=== PATIENT | female | born 1995 | race Caucasian/White ===

== ENCOUNTER → 2025-01-27 07:57 | Outpatient (BNVA) | payer SELFPAY | DX: Z01.84 Encounter for antibody response examination (principal) | CPT/HCPCS: 90710 ==

== ENCOUNTER 2025-02-25 12:48 | Outpatient (AMB) | payer MEDICAID, SELFPAY ==
--- NOTE | 2025-02-25 13:01 | A.OFFVIS_ITS ---
Vital Signs 02/25/25 13:10 Height 5 ft Weight 110 lb BMI 21.5 BP 88/58 L Intake Visit Reasons: breast lump Intake Note: Last pap smear May 2019, normal history. Left breast lump noticed it 2 days ago, bothersome. Occasional molina discharge. Real Estate Asset Manager: Real Estate Asset Manager Present (SOPHIA Rouse) Accompanied by: Self / Same As Patient Allergies ketorolac (From Toradol) Allergy (Verified 02/25/25 13:08) Confusion lorazepam (From Ativan) Allergy (Verified 02/25/25 13:08) Confusion acetaminophen (From Percocet) Adverse Reaction (Verified 02/25/25 13:08) Hives iodine Adverse Reaction (Verified 02/25/25 13:08) Hives oxycodone (From Percocet) Adverse Reaction (Verified 02/25/25 13:08) Hives Is last menstrual period known: Yes Last menstrual period: 08/17/20 Post menopausal: No Patient : No HPI Comments Details: Patient is here for a new patient consult. She reports two area's of the left breast she found lumps over the last few days. Both are non tender. Additionally reports, spontaneous byrnes nipple discharge. She denies any prior breast biopsies, nipple piercing or injuries. Admits to recent loss of weight rapidly between 25-30 lbs. [facility] Medical History Breast lump Bipolar disorder Anxiety PTSD (post-traumatic stress disorder) IBS (irritable bowel syndrome) Acute Crohn's disease Migraines Asthma Surgical History H/O: hysterectomy Hx of appendectomy Family History Maternal Grandmother Breast cancer Maternal Aunt Breast cancer Ovarian cancer Paternal Grandfather Colon cancer Social History Patient : No Female Reproductive History Menstrual Age of Menarche: 18 Date of last menstrual period: 08/17/20 control method: none Total pregnancies: 2 Full term: 2 Review of Systems Const All systems reviewed & are unremarkable except as noted in HPI and below Reports no additional complaints Skin/Breast Reports system reviewed and no additional complaints, except as documented and Reports as per HPI Physical Exam Vital Signs: Last Vital Signs BP 88/58 L 02/25/25 13:10 BMI result Body Mass Index 21.5 Const General: cooperative, healthy appearing and no acute distress Chest Breast/axilla inspection: normal inspection of the breasts and normal inspection of the axillae Breast/axilla palpation: abnormal palpation of the breast (Thickening of the anterior portion of the breast 12:00) and other (Additional lump found 06:00 region, no nipple discharge elicited) Skin General skin exam: no rashes or lesions noted Assessment & Plan Assessment & Plan (1) Breast lump: Code(s): N63.0 - Unspecified lump in unspecified breast Category: Medical Qualifiers: Laterality: left Breast mass location: unspecified quadrant Qualified Code(s): N63.20 - Unspecified lump in the left breast, unspecified quadrant Plan Discussed physical findings today plan to have bilateral mammogram and left breast ultrasound obtained follow up in office for results and consider a surgical referral if indicated. Findings of breast lumps could include benign causes verses cystic changes, precancer and cancer of the breast, other etiology. The patient expressed understanding and agreement with the plan of care. All of her questions and concerns were addressed to the best of my ability. Insert voice recognition Orders: Orders MM tomosynthesis diagnostic BI Today Z12.31 - Encounter for screening mammogram for malignant neoplasm of breast US breast LT complete Today N63.0 - Unspecified lump in unspecified breast Coding Level of Care Code New Pt Level 3 (77754) Diagnoses Mass of left breast, unspecified quadrant N63.20 Laterality: left Breast mass location: unspecified quadrant
[2025-02-25 13:10] VITALS: BP 88/58; BMI 21.5
--- OUTSIDE RECORDS SUMMARY | 2025-02-25 13:20 | XMS_ITS | Clinical Summary ---
Author Organization [facility] Address [address] [place] [address] Care Team Providers Care Qa Software Tester Name Role Phone Ye Anglin MD Primary Care Provider [phone] Allergies Active Allergy Reactions Criticality Noted Date Comments Lorazepam Hives 07/07/2020 Povidone Iodine Hives 07/07/2020 Latex Hives 07/07/2020 Oxycodone-Acetaminophen Hives 07/07/2020 Ketorolac Tromethamine Hives 07/07/2020 Medications Medication Sig Dispensed Refills Start Date End Date Status MV-MIN-FE FUM-FA-DHA PO Take by mouth daily. 0 Active medroxyPROGESTERone (PROVERA) 10 MG tablet Take 10 mg by mouth daily. 0 Active ferrous sulfate 325 (65 FE) MG tablet Take 325 mg by mouth every morning with breakfast. 0 Active budesonide (PULMICORT) 180 MCG/ACT inhaler Inhale 1 puff into the lungs 2 (two) times a day. 0 Active albuterol (PROVENTIL HFA;VENTOLIN HFA) 108 (90 Base) MCG/ACT inhaler Inhale 2 puffs into the lungs every 4 (four) hours as needed for wheezing. 0 Active Active Problems No known active problems Family History Medical History Relation Name Comments Cancer Maternal Grandmother Relation Name Status Comments Maternal Grandmother Social History Tobacco Use Types Packs/Day Years Used Date Smoking Tobacco: Never Smokeless Tobacco: Never Alcohol Use Standard Drinks/Week Comments No 0 (1 standard drink = 0.6 oz pur e alcohol) Sex and Gender Information Value Date Recorded Sex Assigned at Female 07/12/2022 11:31 AM EST Gender Identity Female 07/12/2022 11:31 AM EST Sexual Orientation Not on file Job Start Date Occupation Industry Not on file Not on file Not on file Last Filed Vital Signs Vital Sign Reading Time Taken Comments Blood Pressure 107/63 07/08/2020 9:59 AM EST Pulse 63 07/08/2020 9:59 AM EST Temperature 36.4 C (97.6 F) 07/08/2020 9:59 AM EST Respiratory Rate - - Oxygen Saturation 100% 07/08/2020 9:59 AM EST Inhaled Oxygen Concentration - - Weight 63.1 kg (139 lb 3.2 oz) 07/08/2020 9:59 A M EST Height 154.9 cm (5' 1 ) 07/08/2020 9:59 AM EST Body Mass Index 26.3 07/08/2020 9:59 AM EST Plan of Treatment Health Maintenance Due Date Last Done Comments Hepatitis C Screening 1995 COVID-19 Vaccine (#1) 1995 Depression Screening 2007 BMI Counseling 2013 Preventative Health Evaluation 2013 Cervical Cancer Screening (Pap Smear) 02/19/2016 Influenza Vaccine (#1) 2025 7, 07/14/2011, 06/09/2010 DTap / Tdap / Td (9 - Td or Tdap) 12/30/2029 12/31/2019, 05/11/2017, 12/05/2007, Additional history exists Hepatitis B Vaccines Completed 05/30/1997, 07/03/1996, 07/03/1996, Additional history exists Pneumococcal Vaccine Aged Out No long er eligible based on patient's age to complete this topic RSV Ped < 20 months Aged Out No longe r eligible based on patient's age to complete this topic Care Teams Qa Software Tester Relationship Specialty Start Date End Date Ye Anglin MD PCP - General Internal Medicine 07/12/22
--- OUTSIDE RECORDS SUMMARY | 2025-02-25 13:20 | XMS_ITS | Clinical Summary ---
Author Organization [facility] Address [address] [place] [address] Care Team Providers Care Grain Mill Products Inspector Name Role Phone Vega Infante MD Primary Care Provider Source Comments PLEASE NOTE, if this patient is a minor, it may be UNLAWFUL to discuss sensitive information that is contained in these records (such as FAMILY PLANNING, MENTAL HEALTH or SUBSTANCE ABUSE) with the minor patient's parent or other person without the patient's specific authorization.[facility] Allergies Active Allergy Reactions Criticality Noted Date Comments Acetaminophen 11/20/2017 Ketorolac Hives High 06/22/2016 Reaction noted in 2014 Latex Gloves Hives High 06/22/2016 Lorazepam Medium 03/13/2017 Other reaction(s): Hives/Urticaria Oxycodone-Acetaminophen 10/23/2015 Povidone-Iodine Low 09/28/2018 Other reaction(s): Hives/Urticaria Medications budesonide (PULMICORT FLEXHALER) 180 mcg/actuation inhalerIndicati ons:Moderate persistent asthma, unspecified whether complicated (HHS-HCC) Inhale 180 mcg into the lungs 0 Active nebulizer and compressorIndic ations:Moderate persistent asthma, unspecified whether complicated (HHS-HCC) Use with nebulizer 1 Each 0 Active albuterol sulfate 90 mcg/actuation inhalerIndicati ons:SOB (shortness of breath) Inhale 2 Puffs into the lungs every 4 (four) hours NEEDED FOR SHORTNESS OF BREATH 2 Inhaler 5 0 Active ipratropium-alb uteroL (DUONEB) 0.5 mg-3 mg(2.5 mg base)/3 mL nebulizer solutionIndicat ions:Moderate persistent asthma, unspecified whether complicated ([facility]) Take 3 mL by nebulization 4 (four) times daily 360 mL 5 0 Active PNV,calcium 15-dhhd-pooqn acid (PREPLUS) 27 mg iron- 1 mg tab Take 1 Tab by mouth once daily 90 Tab 1 0 Active Active Problems Problem Noted Date Diagnosed Date Anxiety and depression 11/20/2017 Asthma affecting , antepartum ([facility]) 04/24/2017 Family history of blood clots 03/14/2017 Overview (04/26/2017): Overview: Mother has has multiple thromboembolism Sister had DVT in Has appt with hematology at [facility] Acute back pain 08/19/2016 Overview (08/19/2016): Xray- 08/05/16. Minimal scoliosis. Otherwise negative study Insomnia 10/30/2015 Overview (10/30/2015): Melatonin 3mg Hx of appendectomy 10/30/2015 Irritable bowel syndrome without diarrhea 2015 Resolved Problems Problem Noted Date Diagnosed Date Resolved Date Supervision of normal first ([facility]) 04/26/2017 09/08/2021 Overview (04/26/2017): Overview: Transfer from [facility] at [id number] per pt request/preference 1. [facility] site: [place] 2. Delivery site: [facility] 3. Dating criteria: LMP confirmed by 1st trimester ultrasound 3. Blood type: A+ 4. Genetic screening: Date: Result: 5. GBS: Date: 6. FOB name: quentin 7. Plans A. Epidural or other pain management - B. Labor support identified - C. Tdap - Date: D. Breast or Bottle feed: Breast E. Baby's name - F. Circumcision - Zika screen negative [facility] labs scanned Rubella immune Hep B negative VARICELLA negative TPA neg HIV neg CF negative Pap test normal 02/16/17 survey- posterior placenta, unremarkable survey. Small for dates affecting ma nagement of mother ([facility]) 04/11/2017 09/08/2021 Overview (04/26/2017): Overview: 04/11/2017 Repeat sono with MFM Susceptible to varicella (no n-immune), currently ([facility]) 03/14/2017 09/08/2021 Overview (04/26/2017): Overview: Needs Vertigo 10/30/2015 09/08/2021 Overview (10/30/2015): Seen by cardiology 2011. Started on florinef 150mg which caused leg swelling then stopped. Last visit cardiology recommended midodrine 5 mg tid Anxiety 10/30/2015 11/20/2017 Overview (04/26/2017): Overview: EPDS screen for her initial visit of 13 She is seeing a therapist weekly and feels supported Therapist is at [facility] Immunizations Immunization Administration Dates Next Due DTaP-Hep B-IPV (Pediarix) 05/30/1997,05/1996,02/21/1996,05/02 HEP B, PED/ADOL (MQSFDLI-[id number]-FMQP/RECOMBIVAX-PEDS) 07/03/1996,02/21/1996,1995,05/02 HPV 9 (Gardasil) 07/14/2011,06/09/2010, 7 Hib (PRP-T) 07/03/1996 INFLUENZA, SEASONAL, INJECTABLE 07/14/2011,06/09 IPV (IPOL) 03/09/1999, 6,02/21/1996,05/02 MENINGOCOCCAL VACCINE,CONJUG ATE (NON-INTERFACE) 12/05/2007,08/16/2006 MMR (MMR II/Priorix) 05/30/1997,02/21/1996 PPD 11/20/2017,11/09/2015 TDAP 12/05/2007,08/16/2006 Varicella (Varivax), Live Vaccine 12/05/2007, Family History Medical History Relation Name Comments Alcohol/Drug Abuse Father Kidney disease Maternal Grandmother Heart Problems Mother Relation Name Status Comments Father Alive Maternal Grandmother Mother Alive Social History Tobacco Use Types Packs/Day Years Used Date Smoking Tobacco: Never Smokeless Tobacco: Never Alcohol Use Standard Drinks/Week Comments No 0 (1 standard drink = 0.6 oz pur e alcohol) Social Connections Answer Date Recorded Connectedness 0 04/11/2024 Financial Resource Strain Answer Date R ecorded Financial Resource Strain 0 2018 Stress Answer Date Recorded Stress 0 03/11/2019 Physical Activity Answer Date Recorded Physical Activity 0 03/11/2019 Food Insecurity Answer Date Recorded Food 0 04/18/2024 Transportation Needs Answer Date Record ed Transportation 0 03/11/2019 Housing Stability Answer Date Recorded Housing 0 03/11/2019 Safety and Environment Answer Date Spenser rded Safety 0 03/11/2019 Utilities Answer Date Recorded Utilities 0 03/11/2019 Employment Answer Date Recorded Stress 0 04/11/2024 Comments Unknown Sex and Gender Information Value Date Recorded Sex Assigned at Female 11/20/2017 9:03 AM PDT Legal Sex Female 10:41 AM PST Gender Identity Female 11/20/2017 9:03 AM PDT Sexual Orientation Straight 11/20/2017 9: 03 AM PDT Occupation Industry Job Start Date Job End Date student Not on file Not on file Not on file Last Filed Vital Signs Vital Sign Reading Time Taken Comments Blood Pressure 116/80 12/10/2018 1:06 PM EDT Pulse 96 12/10/2018 1:06 PM EDT Temperature 36.8 C (98.2 F) 12/10/2018 1:06 PM EDT Respiratory Rate 20 12/10/2018 1:06 PM EDT Oxygen Saturation 95% 12/10/2018 1:06 PM EDT Inhaled Oxygen Concentration - - Weight 64.4 kg (142 lb) 12/10/2018 1:06 PM EDT Height 154.9 cm (5' 1 ) 12/10/2018 1:06 PM EDT Body Mass Index 26.83 12/10/2018 1:06 PM EDT Plan of Treatment Health Maintenance Due Date Last Done Comments Anxiety Screening 1995 Depression Monitoring 1995 HPV Screening 1995 Hepatitis C Screening 1995 Pap + HPV 1995 Tobacco Screening 1995 HIV Screening 2010 Relationship Safety Screening/Counseling 2010 Imm-Pneumococcal (1 of 2 - PCV) 2014 Cervical Cancer Screening 02/19/2016 Pap Smear 02/19/2016 Annual Wellness (Adult): Indicated (All Coverage) 11/20/2018 11/20/2017, 11/05/2015 Hypertension Screening (#1) 12/09/2021 [id number] ( season) 2024 021, 07/30/2020 Alcohol and Drug Screen 07/24/2024 11/21/19 18, 10/23/2015, 10/23/2015 Imm-Influenza (#1) 2025 08/27/2018, 1 , 07/14/2011, Additional history exists Imm-DTaP/Tdap/Td (9 - Td or Tdap) 12/30/2029 12/31/2019, 05/11/2017, 12/05/2007, Additional history exists Imm-Hepatitis B Completed 05/30/1997, 06/23, 07/03/1996, Additional history exists Cervical Ablation/Cold-Knife Conization Discontinued Cervical Cryotherapy Discontinued Colposcopy Discontinued Endometrial Biopsy Discontinued Excision/Leep Discontinued HPV Genotyping Discontinued Vaginal Pap Discontinued Vulvoscopy Discontinued Insurance [employer] [facility] Care Teams Grain Mill Products Inspector Relationship Specialty Start Date End Date Vega Infante MD [address] [place] [address] PCP - General Internal Medicine 04/26/21
--- OUTSIDE RECORDS SUMMARY | 2025-02-25 13:20 | XMS_ITS | Encounter Summary ---
Author Organization [facility] Address [address] [place] [address] Care Team Providers Care Straw Hat Presser Name Role Phone Pcp, No Primary Care Provider Unavailabl e Reason for Visit * Reason Onset Date Comments Medication Refill 06/04/2022 Encounter Details Date Type Department Care Team (Late st Contact Info) Description 06/04/2022 Refill [facility] [place] [address] [phone] Hieu Covarrubias PA [address] [place] [address] Yeast vaginitis Social History Tobacco Use Types Packs/Day Years Used Date Smoking Tobacco: Never Assessed Comments No Sex and Gender Information Value Date Recorded Sex Assigned at Not on file Legal Sex Female 2:14 PM EST Gender Identity Not on file Sexual Orientation Not on file COVID-19 Exposure Response Date Recorded In the last 10 days, have yo u been in contact with someone who was confirmed or suspected to have Coronavirus/COVID-19? Unable to assess 06/02/2022 8:49 AM EST documented as of this encounter Plan of Treatment Not on file documented as of this encounter Visit Diagnoses Diagnosis Yeast vaginitis documented in this encounter Care Teams Straw Hat Presser Relationship Specialty Start Date End Date Pcp, No PCP - General General Medicine 08/24/22 documented as of this encounter
== END 2025-02-25 13:50 | disposition home or self-care (01) ==
LOC: HO.HWS 12:48
PROVIDERS: Visit Provider Advanced Practice Midwife
DX: N63.20 Unspecified lump in the left breast, unspecified quadrant (principal)
CPT/HCPCS: 99203

== ENCOUNTER → 2025-02-25 12:48 | Outpatient (BNVA) | payer MEDICAID, SELFPAY | PROVIDERS: Visit Provider Advanced Practice Midwife | DX: N63.21 Unspecified lump in the left breast, upper outer quadrant (principal); N63.23 Unspecified lump in the left breast, lower outer quadrant | CPT/HCPCS: 99212 ==

== ENCOUNTER 2025-03-20 13:48 | Outpatient (REF) | payer MEDICAID, SELFPAY ==
--- NOTE | ~2025-03-20 | MM_ITS ---
EXAMINATIONS: 1. MM DIAGNOSTIC DIGITAL BREAST TOMOSYNTHESIS, BILATERAL 2. Targeted ultrasound of the left breast CLINICAL INFORMATION: Patient felt a left breast lump. The water pipe installer felt another left breast lump. COMPARISON: None. This is a baseline study. TECHNIQUE: Digital breast tomosynthesis is performed in both the craniocaudal and mediolateral oblique views along with computer-aided detection (CAD). Synthesized 2D images are generated from the tomosynthesis. Two skin BB markers were placed in the left breast indicating the location of the palpable concerns. FINDINGS: BREAST COMPOSITION: The breasts are extremely dense, which lowers the sensitivity of mammography (ACR BI-RADS breast composition Category d). RIGHT BREAST: No significant masses, suspicious calcifications or other abnormalities are seen. LEFT BREAST: No significant masses, suspicious calcifications or other abnormalities are seen. In particular, no suspicious mammographic findings adjacent to the 2 skin BB markers. Targeted ultrasound of the left breast was performed at the location of the palpable concerns, as indicated by the patient. The survey performed at about the 11-1:00 positions and at 6-8:00 positions did not reveal suspicious sonographic findings. Only normal breast tissue seen. MM/MM tomosynthesis diagnostic BI IMPRESSION: RIGHT BREAST: Negative, no mammographic evidence of malignancy. LEFT BREAST: Negative, no mammographic evidence of malignancy. Clinical follow-up is recommended, independent of the imaging findings. ASSESSMENT: BI-RADS 1 - Negative RECOMMENDATION: 1. Patient should be managed based on the clinical impression. 2. Otherwise, routine annual screening mammography starting at the age of 4040 years old. Results were provided to the patient at time of visit by the technologist. This patient's information was entered into a reminder system with a target due date for their next mammogram. Electronically signed by: Milagros Kelley MD 03/20/2025 02:55 PM EDT
--- OUTSIDE RECORDS SUMMARY | 2025-03-20 14:34 | XMS_ITS | Clinical Summary ---
Author Organization [facility] Address [address] [place] [address] Care Team Providers Care Telephone Advice Nurse Name Role Phone Ye Anglin MD Primary Care Provider [phone] Allergies Active Allergy Reactions Criticality Noted Date [...] age to complete this topic Care Teams Telephone Advice Nurse Relationship Specialty Start Date End Date Ye Anglin MD PCP - General Internal Medicine 07/12/22
--- OUTSIDE RECORDS SUMMARY | 2025-03-20 14:34 | XMS_ITS | Encounter Summary ---
Author Organization [facility] Address [address] [place] [address] Care Team Providers Care Immunohematologist Name Role Phone Pcp, No Primary Care Provider Unavailabl e Reason for Visit * Reason Onset Date Comments Medication Refill 06/04/2022 Encounter Details Date Type Department Care Team (Late st Contact Info) Description 06/04/2022 Refill [facility] [address] [phone] Hieu Covarrubias PA [address] [place] [address] Yeast vaginitis Social History Tobacco Use Types [...] vaginitis documented in this encounter Care Teams Immunohematologist Relationship Specialty Start Date End Date Pcp, No PCP - General General Medicine 08/24/22 documented as of this encounter
--- OUTSIDE RECORDS SUMMARY | 2025-03-20 14:34 | XMS_ITS | Clinical Summary ---
Author Organization [facility] Address [address] [place] [id number] Care Team Providers Care It Sales Representative Name Role Phone Pcp, No Primary Care Provider Unavailabl e Allergies Active Allergy Reactions Criticality Noted Date Comments Ketorolac Hives High 06/22/2016 Reaction noted in 2014 Ketorolac Tromethamine Hives Medium 03/13/2017 Latex Hives Medium 03/13/2017 Lorazepam Hives Medium 03/13/2017 Other reaction(s): Hives/Urticaria Metronidazole Hives Medium 02/05/2021 Oxycodone-Acetaminophen Hives Medium 10/23/2015 Also causes anxiety Povidone Iodine Hives Medium 09/28/2018 Other reaction(s): Hives/Urticaria Medications budesonide (PULMICORT) 180 MCG/ACT inhaler Inhale 1 puff. Activ e clindamycin (CLEOCIN) 300 MG capsuleIndicat ions:Bacterial vaginosis Take 1 capsule (300 mg total) by mouth 2 (two) times a day. 14 capsule 2 Active fluconazole (diFLUcan) 150 MG tabletIndicati ons:Yeast vaginitis Take 1 tablet (150 mg total) by mouth once. 1 tablet 2 Active clindamycin (Cleocin) 100 MG vaginal suppositoryInd ications:BV (bacterial vaginosis) Insert 1 suppository (100 mg total) into the vagina nightly. 5 suppository 2 Active sulfamethoxazo le-trimethopri m (BACTRIM DS,SEPTRA DS) 800-160 MG per tabletIndicati ons:Acute cystitis with hematuria Take 1 tablet by mouth 2 (two) times a day. 10 tablet 3 Active albuterol (PROVENTIL HFA; VENTOLIN HFA) 108 (90 Base) MCG/ACT inhaler Inhale 2 puffs every 4 (four) hours as needed. Active Active Problems No known active problems Social History Tobacco Use Types Packs/Day Years Used Date Smoking Tobacco: Never Assessed Comments No Sex and Gender Information Value Date Recorded Sex Assigned at Not on file Legal Sex Female 2:14 PM EST Gender Identity Not on file Sexual Orientation Not on file Last Filed Vital Signs Vital Sign Reading Time Taken Comments Blood Pressure 101/63 09/30/2022 7:00 PM EST Pulse 87 09/30/2022 7:00 PM EST Temperature 36.4 C (97.6 F) 09/30/2022 7:00 PM EST Respiratory Rate - - Oxygen Saturation 99% 09/30/2022 7:00 PM EST Inhaled Oxygen Concentration - - Weight 60.8 kg (134 lb) 09/30/2022 7:00 PM EST Height 154.9 cm (5' 1 ) 09/30/2022 7:00 PM EST Body Mass Index 25.32 09/30/2022 7:00 PM EST Plan of Treatment Health Maintenance Due Date Last Done Comments Hepatitis C Virus Screening 1995 HIV Screening 02/19/2008 DTaP/Tdap/Td Vaccines (1 - Tdap) 2014 Hepatitis B Vaccines (1 of 3 - 19+ 3-dose series) 2014 HPV Vaccines (1 - 3-dose SCD M series) 2022 COVID-19 Vaccine (3 - 2023-2 5 season) 2024 10/29/2020, 07/30/2020 Influenza Vaccine 02/21/2025 07/14/2011, 06/09/2010 Pap Smear (Ages 21-65) 07/07/2025 07/07/2022 Pneumococcal Vaccine: Pediatric (0-5 Years) and At-Risk Patients (6 to 49 Years) Aged Out No longer eligible b ased on patient's age to complete this topic Procedures Procedure Name Priority Date/Time Associated Diagnosis Comments THINPREP PAP TEST (MOTION PICTURE DIRECTOR) WITH HPV REFLEX Routine 07/07/2022 12:00 AM EST from Last 3 Months or Most Recently Relevant to Health Maintenance Results * ThinPrep Pap Test (Consulting Engineer) with HPV Reflex (07/07/2022 12:00 AM EST) Clinical Information [facility] Comment:None given LMP: [facility] Comment:NONE GIVEN Previous PAP: [facility] Comment:NONE GIVEN Previous Biopsy [facility] Comment:NONE GIVEN Source: [facility] Comment:Vagina Statement of Adequacy: [facility] Comment: SATISFACTORY FOR EVALUATION Age and/or menstrual status not provided Interpretation/Resu lt: [facility] Comment:Negative for intraep ithelial lesion or malignancy. Infection: [facility] Comment: Shift in vaginal ankit suggestive of bacterial vaginosis. Comment: [facility] Comment: This Pap test has been evaluated with computer assisted technology. Transportation Modeler: [facility] Comment: KR, CT(ASCP) CT screening location: [address] [address] Comment [facility] Comment: EXPLANATORY NOTE: The Pap is a screening test for cervical cancer. It is not a diagnostic test and is subject to false negative and false positive results. It is most reliable when a satisfactory sample, regularly obtained, is submitted with relevant clinical findings and history, and when the Pap result is evaluated along with historic and current clinical information. 07/07/2022 07/09/2022 12: 27 AM EST Narrative [facility] - 07/13/2022 12:24 PM EST [id number] NG [facility] Franklin Louise MD LAB AMB PATH/CYTO ORDERABLE S Final Result [facility] [address], [place] [address] from Last 3 Months or Most Recently Relevant to Health Maintenance Insurance [facility] Care Teams It Sales Representative Relationship Specialty Start Date End Date Pcp, Chloé PCP - General General Medicine 08/24/22
--- OUTSIDE RECORDS SUMMARY | 2025-03-20 14:34 | XMS_ITS | Clinical Summary ---
Author Organization [facility] Address [address] [place] [address] Care Team Providers Care Latex Fashions Designer Name Role Phone Vega Infante MD Primary Care Provider [phone] Source Comments PLEASE NOTE, if this patient [...] solutionIndicat ions:Moderate persistent asthma, unspecified whether complicated ([facility]) Take 3 mL by nebulization 4 (four) times daily 360 mL 5 0 Active PNV,calcium 56-pbwb-ujdad acid (PREPLUS) 27 mg iron- 1 mg tab Take 1 Tab by mouth once daily 90 Tab 1 0 Active Active Problems Problem Noted Date Diagnosed Date Anxiety and depression 11/20/2017 Asthma affecting , antepartum ([facility]) 04/24/2017 Family history of blood clots 03/14/2017 Overview (04/26/2017): Overview: Mother has has multiple thromboembolism Sister had DVT in Has appt with hematology at [facility] Acute back pain 08/19/2016 Overview (08/19/2016): Xray- 08/05/16. Minimal scoliosis. Otherwise negative study Insomnia 10/30/2015 Overview (10/30/2015): Melatonin 3mg Hx of appendectomy 10/30/2015 Irritable bowel syndrome without diarrhea 2015 Resolved Problems Problem Noted Date Diagnosed Date Resolved Date Supervision of normal first ([facility]) 04/26/2017 09/08/2021 Overview (04/26/2017): Overview: Transfer from [facility] at 21w6d per pt request/preference 1. [facility] site: [place] 2. Delivery site: 3. Dating criteria: LMP confirmed by 1st trimester ultrasound 3. Blood type: A+ 4. Genetic screening: Date: Result: 5. GBS: Date: 6. FOB name: quentin 7. Plans A. Epidural or other pain management - B. Labor support identified - C. Tdap - Date: D. Breast or Bottle feed: Breast E. Baby's name - F. Circumcision - Zika screen negative [facility] labs scanned Rubella immune Hep B negative VARICELLA negative TPA neg HIV neg CF negative Pap test normal 02/16/17 survey- posterior placenta, unremarkable survey. Small for dates affecting ma nagement of mother ([facility]) 04/11/2017 09/08/2021 Overview (04/26/2017): Overview: 04/11/2017 Repeat sono with MFM Susceptible to varicella (no n-immune), currently ([facility]) 03/14/2017 09/08/2021 Overview (04/26/2017): Overview: Needs Vertigo 10/30/2015 09/08/2021 Overview (10/30/2015): Seen by cardiology 2011. Started on florinef 150mg which caused leg swelling then stopped. Last visit cardiology recommended midodrine 5 mg tid Anxiety 10/30/2015 11/20/2017 Overview (04/26/2017): Overview: EPDS screen for her initial visit of 13 She is seeing a therapist weekly and feels supported Therapist is at [facility] Immunizations Immunization Administration Dates Next Due DTaP-Hep B-IPV (Pediarix) 05/30/1997,05/1996,02/21/1996,05/02 HEP B, PED/ADOL ([id number]/RECOMBIVAX-PEDS) 07/03/1996,02/21/1996,1995,05/02 HPV 9 (Gardasil) 07/14/2011,06/09/2010, 7 Hib [...] 11/20/2018 11/20/2017, 11/05/2015 Hypertension Screening (#1) 12/09/2021 [id number] ( season) 2024 021, 07/30/2020 Alcohol and [...] Vaginal Pap Discontinued Vulvoscopy Discontinued Insurance [employer] [facility] Care Teams Latex Fashions Designer Relationship Specialty Start Date End Date Vega Infante MD [address] [place] [address] PCP - General Internal Medicine 04/26/21
--- OUTSIDE RECORDS SUMMARY | 2025-03-20 14:34 | XMS_ITS | Clinical Summary ---
Author Organization [facility] Address [address] [place] [address] Phone Care Team Providers Care Waste Oil Pumper Name Role Phone Physician, No Pcp Primary Care Provider Unavaila ble Allergies Active Allergy Reactions Criticality Noted Date Comments Ketorolac Hives Medium 03/13/2017 Latex Hives Medium 03/13/2017 Lorazepam Hives Medium 03/13/2017 Metronidazole Hives 06/27/2024 Oxycodone-Acetaminophen Hives Medium 03/13/2017 Also causes anxiety Povidone-Iodine Hives Low 09/28/2018 Medications sertraline (ZOLOFT) 50 mg tablet Take 1/2 tab PO nightly; then, after 1 week, take 1 tab PO nightly 05/18/2021 Active hydrOXYzine HCL (ATARAX) 10 mg tablet Take 1 tablet (10 mg total) by mouth every 6 (six) hours if needed. 05/18/2021 Active budesonide (PULMICORT) 180 mcg/actuation inhaler Inhale 1 Puff into the lungs 2 times daily. 08/06/2019 Active albuterol HFA (PROAIR HFA ; PROVENTIL HFA ; VENTOLIN HFA) 90 mcg/actuation inhaler Inhale 2 puffs by mouth every 4 (four) hours if needed. Active amoxicillin (AMOXIL) 500 mg tablet Take 1 tablet (500 mg total) by mouth every 8 (eight) hours. for 7 days 07/10/2024 Active ibuprofen (ADVIL,MOTRIN) 600 mg tablet Take 1 tablet (600 mg total) by mouth. for 7 days 07/10/2024 Active traZODone (DESYREL) 50 mg tablet Take 1 tablet (50 mg total) by mouth at bedtime. Active buPROPion (WELLBUTRIN) 75 mg tablet Take by mouth 2 (two) times a day. Active Active Problems Problem Noted Date Diagnosed Date Recurrent vaginitis 08/09/2024 Assessment & Plan (08/09/2024 10:11 AM EST): I explained that I do not see any signs of infection today. I offered to paint with gentian sean and she accepted. Will otherwise send yeast culture and treat prn. If she is positive, will consider fluconazole weekly x 6 months. If negative, she will return with recurrent symptoms to ensure the correct diagnosis. Will check A1C given family history of DM and possible recurrent yeast. Bacterial vaginitis 12/23/2021 Overview (06/27/2024): Last Assessment & Plan: I believe this is the cause of her sx. She may also have a component of yeast. No evidence of bleeding. Will treat with oral fluconazole, as well as Cleocin vaginally. H/o hives on legs with use of Metrogel. Confirmed with patient. Vaginal yeast infection 11/11/2021 Overview (06/27/2024): Last Assessment & Plan: Wet prep positive for vaginal yeast infection. Rx for Diflucan 150mg PO x2 ePrescribed to pharmacy. Vulvovaginal hygiene reviewed. Vaginal discharge 08/20/2021 Overview (06/27/2024): Last Assessment & Plan: Appears almost purulent, but no evidence of source. Will send yeast culture and treat empirically. Will obtain repeat pelvic US to ensure that there is no occult abscess at the cuff that is draining slowly. Microscopic hematuria 08/20/2021 Overview (06/27/2024): Last Assessment & Plan: Will send urine culture. Pelvic pain 04/06/2021 Overview (06/27/2024): Last Assessment & Plan: Seems to be related to her bladder. Given UA findings, will treat presumptively while awaiting culture results. Explained her cuff is well healed, but if negative urine, should still obtain pelvic US. Iron deficiency anemia due to chronic blood loss 06/02/2020 Overview (06/27/2024): Last Assessment & Plan: Continue daily oral iron. Will repeat Hgb prior to surgery. Tachycardia 02/12/2020 Overview (06/27/2024): Seen by [facility], Dr. Lovett Received a call from her on 02/12/2020 and she reports her Holter shows episodes of sinus tachycardia, most often 90's- low 100's, rarely to 130's. Given normal echo, nothing more to do. Does not think necessary to add labetalol as more decrease in BP and hers are low normal. No need for beta blockade. PAUL ZAMAN MD Shortness of breath 10/21/2019 Overview (06/27/2024): Echocardiogram completed on 01/22/2020 -Normal left ventricular size, wall thickening and systolic function. Left ventricular ejection fraction is 50 to 55% and 49% by biplane. -Normal left ventricular size and function -Mildly dilated left atrium -No significant valve abnormalities Ekg scanned on 01/03/2020 Sinus Tach w borderline 2nd to T wave abnormalities, Anterior leads T flat or neg, V2-V4 ---Holter results pending Last Assessment & Plan: Given shortness of breath, not responding to usual asthma medications, in the setting high fevers and risk factors for severe COVID related illness including and asthma, she was counseled to proceed to the ED for evaluation. I spoke with ED provider at [facility] who recommended she come get screened and likely tested for COVID. I relayed specific instructions to go directly to the ED. She will arrange for childcare attendant. Dr. Panchal on [facility] notified. Echogenic focus of heart of fetus affecting antepartum care of mother 10/08/2019 Overview (06/27/2024): We reviewed finding and normal screening --Declined invasive testing Migraine with aura and witho ut status migrainosus, not intractable 04/08/2019 Menorrhagia with irregular cycle 03/05/2019 Overview (06/27/2024): Last Assessment & Plan: Given the patient has had ongoing bleeding with minimal reprieve since delivery, I recommended an US to ensure no retained products. Given this is her typical bleeding profile outside of , likely just resumed. Pt was counseled re: options for treatment of her symptoms including oral progestin only hormonal therapy, levonorgestrel IUD, ablation, and hysterectomy. Given she has tried several progestin only hormonal methods without improvement, cannot use estradiol due to migraine with aura, and given desire to avoid future , despite counseling about possible family changes or loss of her current children, she desires a hysterectomy. I discussed the risks, benefits, and possible regret at such a young age. She states she does not desire to have any more children and is sure she desires to proceed. I think this is reasonable. I recommended she take Provera to allow for recovery of her blood count prior to surgery. Can schedule once she has US and Hematology consult. Asthma affecting , antepartum 7 Overview (06/27/2024): Rx given for inhaled Budesonide on 2019 Anxiety 03/14/2017 Overview (06/27/2024): EPDS screen for her initial visit of 13 She is seeing a therapist weekly and feels supported Therapist is at [facility] Date Type Department Care Team Description 02/25/2025 Telephone Obstetrics & Gynecology [address] [phone] Lori Aguirre CNM 02/25/2025 Telephone Obstetrics & Gynecology - [address] [phone] Lori Aguirre CNM 01/16/2025 Telephone Obstetrics and Gynecology [address] [phone] Paul Zaman MD from Last 3 Months Immunizations Name Administration Dates Next Due HPV, Quadrivalent 07/14/2011,06/09/2010,08/16/19 07 Hep B, Unspecified 07/03/1996,02/21/1996, 995 HiB 07/03/1996 Influenza Quadravalent, MDCK , 0.5ml, preservative free (Flucelvax) 6mo and older 05/11/2017 Meningococcal, Unspecified 12/05/2007,08/16/2006 Tdap Tetanus diptheria acell ular pertussis (Boostrix; Adacel) 7yo and older 12/31/2019,05/11/2017,12/05/2007,2006 Varicella live (Varivax) 12m o and older 07/24/2017,12/05/2007,03/09/1999 Surgical History Surgery Date Site/Laterality Comments APPENDECTOMY PROCEDURE: HISTORICAL APPENDECTOMY HYSTERECTOMY PROCEDURE: HISTORICAL HYSTERECTOMY Medical History Medical History Date Comments Anxiety and depression DX:Anxiet y and depression; COMMENT: see councelor/therapist, sees psychiatrist for first time later this week, does not want to be on any medication PTSD (post-traumatic stress disorder) DX:PTSD (post-traumatic stress disorder); COMMENT: was present when RIOS Sleeping difficulty DX:Sleeping difficulty; COMMENT: just in Migraines DX:Migraines; CO MMENT: no medication, states lets it ride Irritable bowel syndrome (IBS) D X:Irritable bowel syndrome (IBS); COMMENT: no medication Myopia DX:Myopia; COMME NT: wears contacts UTI (urinary tract infection ) during DX:UTI (urinary tract infect ion) during ; COMMENT: pt states shes had 3 UTIs this , on daily regiment of Keflex to prevent further UTI issues Asthma DX:Asthma; COMME NT: exercise induced, scents Displacement of intrauterine contraceptive device 03/05/2019 DX:Displacement of intrauter ine contraceptive device Family history of blood clots DX :Family history of blood clots Vertigo DX:Vertigo Maternal varicella, non-immune 03/14/2017 D X:Maternal varicella, non-immune; COMMENT: Needs Family History Medical History Relation Name Comments No Known Problems Brother 1 No DVT No Known Problems Brother 2 No DVT Crohn's disease Father Hypertension Father Migraines Father Other: hepatitis Father Diabetes Maternal Grandfather type 2 Hyperlipidemia Maternal Grandfather Leukemia Maternal Grandmother recentl y passed (january 2017) Other: thromboembolism Mother DVT, lung age 20 during now 49, had another PE '19 Ovarian cancer Other 1 Maternal Aunt - still living Crohn's disease Other 2 niece Breast cancer Other 3 maternal great grandmother Brain cancer Other 4 nephew Cervical cancer Other 5 maternal aun t No Known Problems Paternal Grandfather hx unknown No Known Problems Paternal Grandmother hx unknown Other: Other Sister 1 Age 22 blood cl ot with 2nd No Known Problems Sister 2 2 normal p regnancies Colon cancer Neg Hx Prostate cancer Neg Hx Uterine cancer Neg Hx Relation Name Status Comments Brother 1 Alive Brother 2 Alive Father Alive Maternal Grandfather Maternal Grandmother Mother Alive Other 1 Other 2 Other 3 Other 4 Other 5 Paternal Grandfather Paternal Grandmother Alive Sister 1 Alive Sister 2 Alive Social History Tobacco Use Types Packs/Day Years Used Date Smoking Tobacco: Never Smokeless Tobacco: Never Alcohol Use Standard Drinks/Week Comments Yes 0 (1 standard drink = 0.6 oz pur e alcohol) Housing Instability Answer Date Recorde d Are you worried that in the next 2 months you may not have stable housing? No 08/07/2024 Food Access & Nutrition Answer Date Rec orded Do you have access to a vari ety of food including fruits and vegetables? Yes 08/07/2024 Access to Healthcare Answer Date Record ed Within the last 3 months, ho w many times did you visit the emergency department for your medical care? 1 08/07/2024 Health Literacy Answer Date Recorded How often do you need to hav e someone help you when you read instructions, pamphlets, or other written material from your doctor or pharmacy? Never 08/07/2024 Caregiver: How often do you need to have someone help you when you read instructions, pamphlets, or other written material from your doctor or pharmacy? Not on file 08/07/2024 Financial Risk Answer Date Recorded How hard is it for you to pa y for the very basics like food, housing, medical care, and air conditioning / heating? Not very hard 08/07/2024 Transportation Answer Date Recorded Has the lack of transportati on kept you from meetings, work, or from getting things needed for daily living? No Has the lack of transportati on kept you from medical appointments or from getting medications? No 08/07/2024 Social Isolation Answer Date Recorded How often do you feel lonely or isolated from th ose around you? Often 08/07/2024 Food Risk Answer Date Recorded Within the past 12 months we worried whether our food would run out before we got money to buy more. Never true 08/07/2024 Within the past 12 months th e food we bought just didn't last and we didn't have money to get more. Never true 08/07/2024 Dependent Care Answer Date Recorded Do you need help finding or paying for care for your loved ones. For example, childcare attendant or elderly care for an older adult? No 08/07/2024 Education Answer Date Recorded Do you think completing more education or training, like finishing a GED, going to college, or learning a trade, would be helpful for you? No 08/07/2024 Employment and Income Answer Date Recor ded During the last four weeks, have you been actively looking for work? No 08/07/2024 Comments No Sex and Gender Information Value Date Recorded Sex Assigned at Female 07/08/2024 4:09 PM EST Legal Sex Female 9:31 PM EDT Gender Identity Female 07/08/2024 4:09 PM EST Sexual Orientation Straight 07/08/2024 4: 09 PM EST Obstetrics History Para Term AB IAB SAB Ectopic Multiple Livin g Live Births 2 2 2 0 0 0 2 2 Date Outcome GA Total Labor Labor/2nd/3rd Weight Sex Type Anes PTL Puja A1 A5 Name Clin 2016 Term 40w 4d 3090 g (109 oz) F Vag-S pont Zofia al Livin g Simran Bailey CNM Complications:Oligohydramnio s Delivery Location:[facility] 2019 Term 39w 3d 9h 39m F Epidur al N Livin g krista la Guard ia MD Delivery Location:[facility] Comments:elective IOL Last Filed Vital Signs Vital Sign Reading Time Taken Comments Blood Pressure 113/61 06/26/2024 11:54 AM EST Pulse 76 06/26/2024 11:54 AM EST Temperature 36.8 C (98.2 F) 06/26/2024 11:54 AM EST Respiratory Rate 14 08/08/2024 9:15 AM EST Oxygen Saturation 100% 06/26/2024 11:54 AM EST Inhaled Oxygen Concentration - - Weight 53.1 kg (117 lb) 08/08/2024 9:15 AM EST Height 154.9 cm (5' 1 ) 06/26/2024 11:24 AM EST Body Mass Index 22.11 06/26/2024 11:24 AM EST Plan of Treatment Health Maintenance Due Date Last Done Comments Pneumococcal Vaccine: Pediatrics (0 to 5 Years) and At-Risk Patients (6 to 49 Years) (1 of 2 - PCV) 2014 COVID-19 Vaccine (3 - season) 2024 10/29/2020, 07/30/2020 Influenza Vaccine (#1) 2025 3, 08/27/2018, 05/11/2017, Additional history exists Social Influencers of Health Screening 08/07/2025 08/07/2024 Cervical Cancer Screening: HPV 07/07/2027 07/07/2022 DTaP,Tdap,and Td Vaccines (10 - Td or Tdap) 12/30/2029 12/31/2019, 05/11/2017, 12/05/2007, Additional history exists HIB Vaccines Completed 07/03/1996 Hepatitis B Vaccines Completed 05/30/1997, 07/03/1996, 07/03/1996, Additional history exists MMR Vaccines Completed 05/30/1997, 02/21/1996 IPV Vaccines Completed 03/09/1999, 01/1997, 07/03/1996, Additional history exists Meningococcal ACWY Vaccine Aged Out 12/05/2007, No longer eligible based on patient's age to complete this topic HPV Vaccines Completed 07/14/2011, 05/24, 08/16/2006 Varicella Vaccines Completed 07/24/2017, 0 12/05/2007, 03/09/1999 Hepatitis C Screening Completed 02/02/2022 HIV Screening Completed 01/22/2024 Depression Screening Completed 08/07/2024 Hepatitis A Vaccines Aged Out No long er eligible based on patient's age to complete this topic Meningococcal B Vaccine Aged Out No l onger eligible based on patient's age to complete this topic RSV Immunization Patients Under 20 months Aged Out No longer eligible based on patient's age to complete this topic Procedures Procedure Name Priority Date/Time Associated Diagnosis Comments HIV SCREENING Routine 01/22/2024 HPV Routine 07/07/2022 HEPATITIS C SCREENING Routine 02/02/2022 from Last 3 Months or Most Recently Relevant to Health Maintenance Results * HIV Screening (01/22/2024) [facility] HIV Screening abstracted [facility] Provider HEALTH MAINTENANCE Final Result * Cervical Cancer Screening: HPV (07/07/2022) [facility] Cervical Cancer Screening: HPV no interpretation , abstracted [facility] Provider HEALTH MAINTENANCE Final Result * Hepatitis C Screening (02/02/2022) [facility] Hepatitis C Screening abstracted [facility] Provider HEALTH MAINTENANCE Final Result from Last 3 Months or Most Recently Relevant to Health Maintenance Care Teams Waste Oil Pumper Relationship Specialty Start Date End Date Physician, No Pcp PCP - General 08/07/24
--- OUTSIDE RECORDS SUMMARY | 2025-03-20 14:34 | XMS_ITS | Encounter Summary ---
Author Organization [facility] Address [address] [place] [address] Care Team Providers Care Commissioner Of Conciliation Name Role Phone Physician, No Pcp Primary Care Provider Unavaila ble Encounter Details Date Type Department Care Team ([facility] st Contact Info) Description 02/25/2025 Telephone Obstetrics & Gynecology - [address] [phone] Lori Aguirre, CRISTHIAN [address] [place] [id number] Social History Tobacco Use Types Packs/Day Years [...] care for your loved ones. For example, child watch attendant or elderly care for an older [...] Orientation Straight 07/08/2024 4: 09 PM EST documented as of this encounter Plan of Treatment Not on file documented as of this encounter Visit Diagnoses Not on filedocumented in this encounter Additional Health Concerns Assessment Noted Time PHQ-9 Depression Total Score: 13 025 2:53 PM EST documented as of this encounter Care Teams Commissioner Of Conciliation Relationship Specialty Start Date End Date Physician, No Pcp PCP - General 08/07/24 documented as of this encounter
== END 2025-03-20 13:49 | disposition home or self-care (01) ==
LOC: HO.MAMMO 13:48
PROVIDERS: PCP Internal Medicine; Visit Provider Advanced Practice Midwife
DX: Z12.31 Encounter for screening mammogram for malignant neoplasm of breast (principal); N63.20 Unspecified lump in the left breast, unspecified quadrant
CPT/HCPCS: 76642; 77062; 77066

== ENCOUNTER → 2025-03-20 14:00 | Outpatient (BNV) | payer MEDICAID, SELFPAY | PROVIDERS: PCP Internal Medicine; Visit Provider Radiology Body Imaging | DX: N63.20 Unspecified lump in the left breast, unspecified quadrant (principal) | CPT/HCPCS: 76642; 77062; 77066 ==

== ENCOUNTER 2025-04-09 11:20 | Outpatient (REF) | payer SELFPAY ==
--- OUTSIDE RECORDS SUMMARY | 2025-04-09 14:43 | XMS_ITS | Clinical Summary ---
Author Organization [facility] Address [address] [place] [address] Phone Care Team Providers Care Nuclear Plant Construction Worker Name Role Phone Lizette Moore MD Primary Care Provider [phone] Allergies Active Allergy Reactions Criticality Noted Date [...] surgery. Tachycardia 02/12/2020 Overview (06/27/2024): Seen by [facility], Dr. Lovett Received a call from [...] evaluation. I spoke with ED provider at [facility] who recommended she come get screened and likely tested for COVID. I relayed specific instructions to go directly to the ED. She will arrange for director of early childhood. Dr. Panchal on [facility] notified. Echogenic focus of heart of fetus [...] weekly and feels supported Therapist is at [facility] Type Department Care Team Description 04/03/2025 Telephone Adult Medicine [address] [phone] Selin Barboza MA 02/25/2025 Telephone Obstetrics & Gynecology - [address] [phone] Lori Aguirre CNM 02/25/2025 Telephone Obstetrics & Gynecology [address] [phone] Lori Aguirre CNM 01/16/2025 Telephone Obstetrics and Gynecology [address] [phone] Paul Zaman MD from Last 3 Months [...] care for your loved ones. For example, director of early childhood or elderly care for an older adult? [...] 3090 g (109 oz) F Vag-S pont Epidur al Kiran Bailey CNM Complications:Oligohydramnio s Delivery Location:[facility] 2019 Term 39w 3d 9h 39m F Epidur al N Livsabi Dalton MD Delivery Location:[facility] Comments:elective IOL Last Filed Vital Signs Vital [...] PCV) 2014 COVID-19 Vaccine (3 - season) 2025 10/29/2020, 07/30/2020 Influenza Vaccine (#1) 2025 , 08/27/2018, 05/11/2017, Additional history exists Social Influencers [...] Health Maintenance Results * HIV Screening (01/22/2024) HIV Screening abstracted [facility] Provider HEALTH MAINTENANCE Final Result * Cervical Cancer Screening: HPV (07/07/2022) Pathologist [facility] Cervical Cancer Screening: HPV no interpretation , abstracted [facility] Provider HEALTH MAINTENANCE Final Result * Hepatitis C Screening (02/02/2022) Pathologist [facility] Hepatitis C Screening abstracted [facility] Provider HEALTH MAINTENANCE Final Result from Last 3 Months or Most Recently Relevant to Health Maintenance Insurance Care Teams Nuclear Plant Construction Worker Relationship Specialty Start Date End Date Lizette Moore MD [address] [facility] [address], [place] PCP - General Internal Medicine 04/03/25
--- OUTSIDE RECORDS SUMMARY | 2025-04-09 14:43 | XMS_ITS | Clinical Summary ---
Author Organization [facility] Address [address] [place] [address] Care Team Providers Care Invertebrate Paleontologist Name Role Phone Ye Anglin MD Primary Care Provider [phone] Allergies Active Allergy Reactions Criticality Noted Date [...] age to complete this topic Care Teams Invertebrate Paleontologist Relationship Specialty Start Date End Date Ye Anglin MD PCP - General Internal Medicine 07/12/22
--- OUTSIDE RECORDS SUMMARY | 2025-04-09 14:43 | XMS_ITS | Clinical Summary ---
Author Organization [facility] Address [address] [place] [address] Care Team Providers Care Metal Cnc Operator Name Role Phone Vega Infante MD Primary Care Provider [phone] Source Comments PLEASE NOTE, if this patient [...] solutionIndicat ions:Moderate persistent asthma, unspecified whether complicated ([facility]) Take 3 mL by nebulization 4 (four) times daily 360 mL 5 0 Active PNV,calcium 06-yzsi-xqhiz acid (PREPLUS) 27 mg iron- 1 mg tab Take 1 Tab by mouth once daily 90 Tab 1 0 Active Active Problems Problem Noted Date Diagnosed Date Anxiety and depression 11/20/2017 Asthma affecting , antepartum ([facility]) 04/24/2017 Family history of blood clots 03/14/2017 Overview (04/26/2017): Overview: Mother has has multiple thromboembolism Sister had DVT in Has appt with hematology at [facility] Acute back pain 08/19/2016 Overview (08/19/2016): Xray- 08/05/16. Minimal scoliosis. Otherwise negative study Insomnia 10/30/2015 Overview (10/30/2015): Melatonin 3mg Hx of appendectomy 10/30/2015 Irritable bowel syndrome without diarrhea 2015 Resolved Problems Problem Noted Date Diagnosed Date Resolved Date Supervision of normal first ([facility]) 04/26/2017 09/08/2021 Overview (04/26/2017): Overview: Transfer from [facility] at 21w6d per pt request/preference 1. [facility] site: [place] 2. Delivery site: [facility] 3. Dating criteria: LMP confirmed by 1st trimester ultrasound 3. Blood type: A+ 4. Genetic screening: Date: Result: 5. GBS: Date: 6. FOB name: quentin 7. Plans A. Epidural or other pain management - B. Labor support identified - C. Tdap - Date: D. Breast or Bottle feed: Breast E. Baby's name - F. Circumcision - Zika screen negative [facility] labs scanned Rubella immune Hep B negative VARICELLA negative TPA neg HIV neg CF negative Pap test normal 02/16/17 survey- posterior placenta, unremarkable survey. Small for dates affecting ma nagement of mother ([facility]) 04/11/2017 09/08/2021 Overview (04/26/2017): Overview: 04/11/2017 Repeat sono with MFM Susceptible to varicella (no n-immune), currently ([facility]) 03/14/2017 09/08/2021 Overview (04/26/2017): Overview: Needs Vertigo 10/30/2015 09/08/2021 Overview (10/30/2015): Seen by cardiology 2011. Started on florinef 150mg which caused leg swelling then stopped. Last visit cardiology recommended midodrine 5 mg tid Anxiety 10/30/2015 11/20/2017 Overview (04/26/2017): Overview: EPDS screen for her initial visit of 13 She is seeing a therapist weekly and feels supported Therapist is at [facility] Immunizations Immunization Administration Dates Next Due DTaP-Hep B-IPV (Pediarix) 05/30/1997,05/1996,02/21/1996,05/02 HEP B, PED/ADOL ([id number]/RECOMBIVAX-PEDS) 07/03/1996,02/21/1996,1995,05/02 HPV 9 (Gardasil) 07/14/2011,06/09/2010, 7 Hib [...] 11/20/2018 11/20/2017, 11/05/2015 Hypertension Screening (#1) 12/09/2021 Alcohol and Drug Screen 07/24/2024 11/21/19 18, 10/23/2015, 10/23/2015 [id number] ( season) 2025 021, 07/30/2020 Imm-Influenza (#1) 2025 08/27/2018, 1 , 07/14/2011, Additional history exists Imm-DTaP/Tdap/Td (9 - Td or Tdap) 12/30/2029 12/31/2019, 05/11/2017, 12/05/2007, Additional history exists Imm-Hepatitis B Completed 05/30/1997, 06/23, 07/03/1996, Additional history exists Imm-HPV Completed 07/14/2011, 05/24, 08/16/2006 Cervical Ablation/Cold-Knife Conization Discontinued Cervical Cryotherapy Discontinued Colposcopy Discontinued Endometrial Biopsy Discontinued Excision/Leep Discontinued HPV Genotyping Discontinued Vaginal Pap Discontinued Vulvoscopy Discontinued Insurance [employer] Care Teams Metal Cnc Operator Relationship Specialty Start Date End Date Vega Infante MD [address] [place] [address] PCP - General Internal Medicine 04/26/21
--- OUTSIDE RECORDS SUMMARY | 2025-04-09 14:43 | XMS_ITS | Encounter Summary ---
Author Organization [facility] Address [address] [place] [address] Care Team Providers Care Double End Sewer Name Role Phone Pcp, No Primary Care Provider Unavailabl e Reason for Visit * Reason Onset Date Comments Medication Refill 06/04/2022 Encounter Details Date Type Department Care Team (Late st Contact Info) Description 06/04/2022 Refill [facility] [place] [address] [id number] Hieu Covarrubias PA [address] [place] [address] Yeast vaginitis Social History Tobacco Use Types [...] vaginitis documented in this encounter Care Teams Double End Sewer Relationship Specialty Start Date End Date Pcp, No PCP - General General Medicine 08/24/22 documented as of this encounter
--- OUTSIDE RECORDS SUMMARY | 2025-04-09 14:43 | XMS_ITS | Clinical Summary ---
Author Organization [facility] Address [address] [place] [id number] Care Team Providers Care Software Engineering Project Manager Name Role Phone Pcp, No Primary Care [...] (1 - 3-dose SCD M series) 2022 Influenza Vaccine 02/21/2025 07/14/2011, 06/09/2010 COVID-19 Vaccine (3 - 2024-2 6 season) 2025 10/29/2020, 07/30/2020 Pap Smear (Ages 21-65) 07/07/2025 07/07/2022 Pneumococcal Vaccine: Pediatric (0-5 Years) and At-Risk Patients (6 to 49 Years) Aged Out No longer eligible b ased on patient's age to complete this topic Procedures Procedure Name Priority Date/Time Associated Diagnosis Comments THINPREP PAP TEST (LEGAL TECHNICIAN) WITH HPV REFLEX Routine 07/07/2022 12:00 AM EST from Last 3 Months or Most Recently Relevant to Health Maintenance Results * ThinPrep Pap Test (Drag Sawyer) with HPV Reflex (07/07/2022 12:00 AM EST) [...] has been evaluated with computer assisted technology. Program Evaluation Consultant: [facility] Comment: KR, CT(ASCP) CT screening location: [address] [address] Comment [facility] Comment: EXPLANATORY NOTE: [...] [facility] - 07/13/2022 12:24 PM EST [id number] NG [facility] Franklin Louise MD LAB AMB PATH/CYTO ORDERABLE S Final Result [facility] [address], [place] [address] from Last 3 Months or Most Recently Relevant to Health Maintenance Insurance [facility] Care Teams Software Engineering Project Manager Relationship Specialty Start Date End Date Pcp, Chloé PCP - General General Medicine 08/24/22
== END 2025-04-09 11:21 | disposition home or self-care (01) ==
LOC: HO.LAB 11:20
PROVIDERS: Visit Provider Advanced Practice Midwife
DX: R35.0 Frequency of micturition (principal)
CPT/HCPCS: 87086; 87088; 87186

== ENCOUNTER → 2025-04-09 11:20 | Outpatient (BNV) | payer SELFPAY | PROVIDERS: PCP Internal Medicine; Visit Provider Advanced Practice Midwife | DX: R35.0 Frequency of micturition (principal) | CPT/HCPCS: 81003 ==